=== PATIENT | male | born 1970 | race Caucasian/White ===

== ENCOUNTER → 2019-04-06 | Day surgery (SDC) | payer OTHER ==
--- NOTE | 2019-04-05 10:06 | Diagnostic Imaging Report ---
EXAM: CHEST 2 VIEWS DATE: 04/05/2019 8:30 AM INDICATION: Preoperative evaluation COMPARISON: None FINDINGS: The trachea is midline. The lungs are symmetrically expanded without evidence for large focal consolidation, pneumothorax, or significant pleural effusion. The cardiomediastinal silhouette and pulmonary vasculature are within normal limits. No acute osseous abnormality is identified. The surrounding soft tissues are unremarkable. IMPRESSION: No acute cardiopulmonary process identified. Signed by: Dr. Claus Chowdhury MD on 04/05/2019 10:03 AM
[~2019-04-06] MED LIST: ALLOPURINOL100 MG PO; BEET ROOT PO; CEFAZOLIN SOD 1 GM/NS 50ML 100 ML IV ONE; DESFLURANE 240 ML BTL INH ONE; EPINEPHRINE 1 MG/ML 30ML VIAL ONE; EPINEPHRINE HCL 1:1000 1ML 1 MG/ML AMP ONE; FENTANYL CITRATE/PF 100MCG/2 ML INJ ONE; HYDROCODONE/APAP 5MG-325MG TAB ONE; KETOROLAC TROMETHAMINE 30 MG/ML VIAL ONE; LABETALOL HCL 5 MG/ML 20ML VIAL ONE; LIDOCAINE HCL 2% LOCAL 20 ML VIAL ONE; LIDOCAINE HCL 2% LOCAL INJ 5 ML SDV VIAL INJ ONE; LIDOCAINE HCL50 ML TOP; MECLIZINE HCL12.5 MG PO; MIDAZOLAM HCL 2 MG/2 ML VIAL ONE; MULTI-VITAMIN1 EACH PO; OMEPRAZOLE40 MG PO; ONDANSETRON HCL INJ 2MG/ML 2ML 2 MG/ML VIAL ONE; PROPOFOL IV EMULSION 10 MG/ML 20 ML VIAL ONE; ROPIVACAINE 0.5% 5 MG/ML 30 ML SDV ONE; SUCCINYLCHOLINE CHLORIDE 20 MG/ML 10ML VIAL ONE; SUGAMMADEX SODIUM 200 MG/2 ML VIAL IV ONE; VIT B12 PO; [UNRECOGNIZED DRUG - OTHER] PO
[2019-04-06 14:35] VITALS: BP 142/85
--- NOTE | 2019-04-06 23:09 | Operative Report ---
DATE OF PROCEDURE: 04/06/2019 SURGEON: Ken Conroy MD PREOPERATIVE DIAGNOSES: Left shoulder rotator cuff tear, left shoulder acromioclavicular arthritis. 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 OPERATIONS AND PROCEDURE PERFORMED: The patient underwent left shoulder exam under anesthesia, left shoulder arthroscopy, left shoulder arthroscopic debridement of synovitis, left shoulder chondroplasty of the humeral head, left shoulder arthroscopic rotator cuff reconstruction, left shoulder arthroscopic subacromial decompression and acromioplasty, left shoulder arthroscopic distal clavicle resection. ORTHOPHOTO TECH/DRAFTSMAN: BRITTNEY Hobson. ANESTHESIA: General endotracheal intubation anesthesia. IV FLUIDS: Per the Anesthesia record. BRIEF DESCRIPTION OF THE PATIENT'S OPERATIVE PROCEDURE: Mr. Zavala was taken to the operating room, placed in the supine position on the operating table. Following induction of general anesthesia as well as endotracheal intubation, the patient's left upper extremity was examined under anesthesia. He was found to have full passive range of motion of the shoulder joint. There were no gross abnormalities to the shoulder. There was no evidence of instability. The patient's upper extremity was prepped and draped in standard surgical fashion. Standard posterolateral and anterior port were created without difficulty. The scope was placed within the shoulder joint atraumatically. Examination of glenohumeral articulation demonstrated mild chondromalacia of the humeral head. There were no loose bodies in the shoulder joint. The long head of the biceps tendon was found and contained within the shoulder joint. A probe was placed in the shoulder. The labrum was probed thoroughly and found to be stable. The biceps was drawn into the shoulder and the extra-articular portion of the biceps tendon was also found to be intact. The shaver was placed in the shoulder joint and a chondroplasty of the humeral head was performed. There was also diffuse synovitis within the shoulder and this was debrided at this time. Examination of the rotator cuff tissue demonstrated a near full thickness tear of the infraspinatus tendon. A shaver was used to debride the torn rotator cuff tissue. An elevator was used to complete the tear. A shaver was then used to debride the insertion site to a bleeding bony bed. The shoulder was then inflated with sterile normal saline. The scope was placed in the subacromial space and a lateral portal was created from an outside-in technique. There was significant bursal inflammation within the subacromial space. The shaver was used to debride the bursal tissue. The rotator cuff tear was easily identified. A shaver was used to further debride the rotator cuff tear as well as the insertion site to a bleeding bony bed. A single triple-loaded suture anchor was then inserted into the greater tuberosity of the humerus and the suture arms from that anchor were then woven through the rotator cuff tissue. The rotator cuff tissue was then advanced and tied firmly over its normal insertion site. This resulted in complete reapproximation of the rotator cuff injury. The coracoacromial ligament was then resected. An aggressive acromioplasty was performed at this time. The shoulder was placed through range of motion and no impingement was encountered of the rotator cuff tissue into the subacromial space of the acromion. Attention was then turned to the acromioclavicular joint. The anterior portal was transferred into the subacromial space at the level of the acromioclavicular joint. The distal aspect of the clavicle was isolated. A 1 cm section of the distal clavicle was then resected using a shaver. The scope was transferred to the anterior portal to confirm a complete resection of the distal clavicle. The shoulder was then deflated with sterile normal saline. Each of the portal sites were closed and sterile dressings were applied. The portal sites were dressed sterilely. The patient was provided a shoulder immobilizer. He was then awakened and taken to the postanesthesia care in stable condition. Sandhya Arboleda acted as the first aid nurse for this case and was necessary for the prepping and draping of the patient as well as positioning of the arm and passage of sutures that allowed this case to be successful. MD JULIENNE Peña/ELISA /[id number]
--- OUTSIDE RECORDS SUMMARY | 2019-04-08 13:55 | XMS REPORT ---
Author Author [facility] Address Unknown Phone Unavailable Care Team Providers Care Zone Maintenance Technician Name Role Phone BILL MANN Unavailable Unavailable Problems This patient has no known problems. Allergies, Adverse Reactions, Alerts This patient has no known allergies or adverse reactions. Medications This patient has no known medications. Results Test Description Test Time Test Comments Text Results Atomic Results Result Comments CHEST 2 VIEWS 2019-04-05 10:03:00 [place] [id number] Patient Name: DIMITRIOS ZAMORA MR #: [id number] : 1970 Age/Sex: 48/M Req #: [id number] Adm Physician: Ordered by: BILL MANN MD Report #: [id number] Location: OR Room/Bed: Procedure: [id number] DX/CHEST 2 VIEWS Exam Date: 04/05/19 Exam Time: 914 REPORT STATUS: Signed EXAM: CHEST 2 VIEWS DATE: 04/05/2019 8:30 AM INDICATION: Preoperative evaluation COMPARISON: None FINDINGS: The trachea is midline. The lungs are symmetrically expanded without evidence for large focal consolidation, pneumothorax, or significant pleural effusion. The cardiomediastinal silhouette and pulmonary vasculature are within normal limits. No acute osseous abnormality is identified. The surrounding soft tiss ues are unremarkable. IMPRESSION: No acute cardiopulmonary process identified. Signed by: Dr. Claus Iqbal MD on 04/05/2019 10:03 AM Dictated By: CLAUS IQBAL MD [id number] Transcribed By: HECTOR on 04/05/19 1003 COPY TO: BILL MANN MD
== END | disposition home or self-care (01) ==
LOC: OR 09:53
PROVIDERS: ATTEND Specialist
DX: M75.112 Incomplete rotator cuff tear or rupture of left shoulder, not specified as traumatic (principal); M19.012 Primary osteoarthritis, left shoulder; F17.210 Nicotine dependence, cigarettes, uncomplicated; M10.9 Gout, unspecified; E66.9 Obesity, unspecified; I10 Essential (primary) hypertension; E78.00 Pure hypercholesterolemia, unspecified; K21.9 Gastro-esophageal reflux disease without esophagitis; M65.812 Other synovitis and tenosynovitis, left shoulder; M94.212 Chondromalacia, left shoulder; Z01.810 Encounter for preprocedural cardiovascular examination; Z01.811 Encounter for preprocedural respiratory examination
CPT/HCPCS: 29826; 29827; 71046; 93005; C1713; J0171; J0330; J0690; J1885; J2001 ×2; J2250; J2405; J2704; J2795; J3010; J3490

== ENCOUNTER 2022-01-07 09:13 | Emergency (ER) | payer OTHER ==
[~2022-01-07] VITALS: Ht 185.4 cm; Wt 104.3 kg
[~2022-01-07 09:13] MED LIST changes: -CEFAZOLIN SOD 1 GM/NS 50ML 100 ML IV ONE; -DESFLURANE 240 ML BTL INH ONE; -EPINEPHRINE 1 MG/ML 30ML VIAL ONE; -EPINEPHRINE HCL 1:1000 1ML 1 MG/ML AMP ONE; -FENTANYL CITRATE/PF 100MCG/2 ML INJ ONE; -HYDROCODONE/APAP 5MG-325MG TAB ONE; -KETOROLAC TROMETHAMINE 30 MG/ML VIAL ONE; -LABETALOL HCL 5 MG/ML 20ML VIAL ONE; -LIDOCAINE HCL 2% LOCAL 20 ML VIAL ONE; -LIDOCAINE HCL 2% LOCAL INJ 5 ML SDV VIAL INJ ONE; -MIDAZOLAM HCL 2 MG/2 ML VIAL ONE; -ONDANSETRON HCL INJ 2MG/ML 2ML 2 MG/ML VIAL ONE; -PROPOFOL IV EMULSION 10 MG/ML 20 ML VIAL ONE; -ROPIVACAINE 0.5% 5 MG/ML 30 ML SDV ONE; -SUCCINYLCHOLINE CHLORIDE 20 MG/ML 10ML VIAL ONE; -SUGAMMADEX SODIUM 200 MG/2 ML VIAL IV ONE
[2022-01-07] MEDS ORDERED: HYDROCODONE/APAP 7.5MG-325MG 1 EA TAB PO ONE (09:45)
[2022-01-07] MEDS ORDERED: KETOROLAC TROMETHAMINE 60 MG/2 ML VIAL IM ONE (09:45)
[2022-01-07] MEDS ORDERED: DEXAMETHASONE SOD PHOS 10 MG/1 ML VIAL IM ONE (10:00)
[2022-01-07] MEDS ORDERED: METHYLPREDNISOLO4 M1 PO (11:29)
[2022-01-07] MEDS ORDERED: HYDROCODON-ACE1 EA12 PO (11:29)
== END 2022-01-07 11:59 | disposition home or self-care (01) ==
LOC: ER 09:16
DX: M54.42 Lumbago with sciatica, left side (principal); I10 Essential (primary) hypertension
CPT/HCPCS: 72100; 99283; J1100; J1885